=== PATIENT | male | born 1960 | race Caucasian/White ===

== ENCOUNTER 2016-11-22 18:42 | Emergency (ER) | payer OTHER ==
[~2016-11-22] VITALS: Wt 93.0 kg
[~2016-11-22 18:42] MED LIST: MOTRIN800 MG PO; NKHM; ROBITUSSIN DM120 ML PO; VIBRAMYCIN100 MG PO
[2016-11-22] MEDS ORDERED: NAPROSYN500 MG PO ×2 (18:54→19:02)
[2016-11-22] MEDS ORDERED: KEFLEX500 M1 PO ×2 (18:54→19:02)
[2016-11-22] MEDS ORDERED: ANTIBIOTIC O500 U/GM T ×2 (18:54→19:02)
[2016-11-23] MEDS ORDERED: NAPROSYN500 MG PO (14:48)
[2016-11-23] MEDS ORDERED: CEPHALEXIN500 M1 PO (14:48)
[2016-11-23] MEDS ORDERED: ANTIBIOTIC O500 U/GM T (14:48)
== END 2016-11-22 20:10 | disposition home or self-care (01) ==
LOC: ED 18:42
DX: T14.8 Other injury of unspecified body region (principal); M25.562 Pain in left knee; M79.632 Pain in left forearm; R03.0 Elevated blood-pressure reading, without diagnosis of hypertension; V89.2XXA Person injured in unspecified motor-vehicle accident, traffic, initial encounter; Y93.89 Activity, other specified; Y92.89 Other specified places as the place of occurrence of the external cause; Y99.9 Unspecified external cause status